=== PATIENT | female | born 1990 | race African-American/Black ===

== ENCOUNTER 2018-10-01 21:59 | Emergency (ER) | payer SELFPAY | END 2018-10-01 23:45 | LOC: ERS 21:59 | DX: F12.10 Cannabis abuse, uncomplicated (principal); G47.00 Insomnia, unspecified; F17.210 Nicotine dependence, cigarettes, uncomplicated | CPT/HCPCS: 99282 ==

== ENCOUNTER 2019-12-23 22:04 | Emergency (ER) | payer SELFPAY | END 2019-12-23 22:35 | LOC: ERS 22:04 | DX: Z02.89 Encounter for other administrative examinations (principal); F17.210 Nicotine dependence, cigarettes, uncomplicated | CPT/HCPCS: 99282 ==

== ENCOUNTER 2022-03-23 18:31 | Emergency (ER) | payer SELFPAY ==
[2022-03-23 19:21] LABS: Bilirubin Negative (Negative); Blood, Urine Negative (Negative); Clarity Turbid (Clear); Glucose, Urine (Dipstick) Normal (Negative); Ketone, Urine 80 mg/dL (Negative); Leukocyte 250 Leu/uL (Negative); Nitrite Negative (Negative); Protein, Urine (Dipstick) 30 mg/dL (Neg-Trace); RBC/HPF 0-3 HPF (0-3); Specific Gravity, Urine 1.028 (1.002-1.036); pH, Urine 5.5 (5.0-9.0)
[2022-03-23 19:21] LABS: Hemoglobin 14.3 g/dL (12.0-16.0); Mean Corpuscular HGB CONC 31.9 g/dL (32.0-36.0); Mean Corpuscular Hemoglobin 28.9 pg (27.0-31.0); Mean Corpuscular Volume 90.4 fL (78.0-98.0); Mean Platelet Volume 6.9 fL (7.4-10.4); Platelet Count 373 thou/uL (130-400); RBC Distribution Width 14.1 % (11.5-14.5); Red Blood Cell (RBC) Count 4.96 mill/uL (4.20-5.40); White Blood Cell (WBC) Count 22.1 thou/uL (4.8-10.8)
[2022-03-23 19:25] LABS: Amphetamine Detected (NotDetected); Barbiturates Screen Not Detected (NotDetected); Benzodiazepine Screen Not Detected (NotDetected); Cocaine Metabolite Screen Not Detected (NotDetected); Methadone Not Detected (NotDetected); Methamphetamine Detected (NotDetected); Opiate Screen Not Detected (NotDetected); Oxycodone Screen Not Detected (NotDetected); Phencyclidine (PCP) Not Detected (NotDetected); THC/Cannabinoid Screen Detected (NotDetected); Tricyclic Screen Not Detected (NotDetected)
[2022-03-23 19:27] LABS: Bacteria/HPF 3+ HPF (None Seen); Calcium Oxalate Crystals Rare HPF (None Seen); Mucous/LPF 1+ LPF (<2+)
[2022-03-23 19:29] LABS: BHCG - Serum Negative (NEGATIVE); Pregs Control Background? CLEAR/WHITE (CLR/WHITE); Pregs Control Bar Appear? YES (CONTROL BAR)
[2022-03-23 19:36] LABS: Anion Gap 18 mmol/L (10-20); BUN (Urea Nitrogen) 13 mg/dL (7.0-18.7); Band 2 % (5-11); Calc. Creatinine Clearance 0 mL/min (70-130); Calcium 10.4 mg/dL (7.8-10.44); Carbon Dioxide 24 mmol/L (22-29); Chloride 97 mmol/L (98-107); Estimated GFR 51; Glucose 70 mg/dL (70-105); Lymphocytes 7 % (21-51); MDiff Complete? YES; Monocytes 5 % (0-10); Neutrophil 86 % (42-75); Platelet Morphology Comment Appears Adequate; Potassium 3.4 mmol/L (3.5-5.1); RBC Morphology Normal; Sodium 136 mmol/L (136-145)
== END 2022-03-23 19:56 | disposition home or self-care (01) ==
LOC: ERS 18:31
DX: N39.0 Urinary tract infection, site not specified (principal); F19.10 Other psychoactive substance abuse, uncomplicated; F17.210 Nicotine dependence, cigarettes, uncomplicated
CPT/HCPCS: 36415; 80048; 80306; 81003; 81015; 84703; 85025; 93005